=== PATIENT | female | born 1990 | race Two or more races ===

== ENCOUNTER 2016-07-03 13:13 | Emergency (ER) | payer MEDICAID ==
[~2016-07-03] VITALS: Ht 167.6 cm; Wt 87.1 kg
[~2016-07-03 13:13] MED LIST: ACETAMINOPHEN-1 EAC1 PO; ACETAMINOPHEN500 M3 ORAL; ALBUTEROL SULF8.5 GM INH; ALBUTEROL2.5 MG/3 M HHN; BENADRYL25 M3 PO; BENTYL10 MG ORAL; CYCLOBENZAPRINE10 MG ORAL; FIORICET1 EA ORAL; IBUPROFEN600 MG ORAL; IBUPROFEN600 MG PO; IBUPROFEN800 MG ORAL; IMITREX50 MG ORAL; LOMOTIL TABLET1 EACH ORAL; NAPROXEN375 MG ORAL; NITROFURANTOIN100 M2 ORAL; NKM; NORCO 5-325 TA1 EACH ORAL; NORCO 5-325 TA1 EACH PO; ONDANSETRON ODT4 MG ORAL; PROMETHAZI6.25 MG/1 ORAL; PROVERA10 MG ORAL; REGLAN5 MG ORAL; TYLENOL EXTRA500 MG ORAL; VICODIN 5-5001 EACH PO; ZOFRAN ODT4 MG ORAL; ZOFRAN4 MG ORAL
[2016-07-03] MEDS ORDERED: Acetaminophen 500mg (ES) tab ORAL ONE (14:30)
[2016-07-03] MEDS ORDERED: Morphine Sulfate 2mg/ml Inj IM ONE (14:45)
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
[2016-07-03] MEDS ORDERED: ROBAXIN-750750 MG PO (15:29)
[2016-07-03] MEDS ORDERED: ACETAMINOPHEN-1 EAC2 ORAL (15:29)
[2016-07-03 15:30] VITALS: BP 109/70
[2016-07-03 15:45] VITALS: BP 109/70
--- NOTE | 2016-07-04 10:21 | Diagnostic Imaging Report ---
Indication: Acute chest injury Technique: Continuous helical transaxial imaging of the chest was obtained from the thoracic inlet to the upper abdomen. No intravenous contrast was administered. Coronal 2-D reformats were also obtained. Total Dose length Product (DLP): [address] Dose Index Volume (CTDIvol): 23 mGy Comparison: none Findings: The lungs are clear. There is no evidence of a pulmonary contusion, effusion, hematoma. Chest wall and osseous structures visualized are grossly intact. No obvious fracture of the thoracic spine identified. No mediastinal fluid identified. Cholecystectomy clips noted. Impression: No evidence of acute injury. Negative exam. Status post cholecystectomy Dr. reynolds has communicated the preliminary results to the Emergency Department. There are no significant discrepancies. The CT scanner at [facility] is accredited by the [employer] and the scans are performed using protocols designed to limit radiation exposure to as low as reasonably achievable to attain images of sufficient resolution adequate for diagnostic evaluation.
== END 2016-07-03 15:45 | disposition home or self-care (01) ==
LOC: EMR 13:58
DX: M54.5 Low back pain (principal); S39.92XD Unspecified injury of lower back, subsequent encounter; W17.89XD Other fall from one level to another, subsequent encounter; Z90.49 Acquired absence of other specified parts of digestive tract
CPT/HCPCS: 71250; 96372; 99284; J2270

== ENCOUNTER 2016-12-27 14:30 | Emergency (ER) | payer MEDICAID ==
[~2016-12-27] VITALS: Ht 165.1 cm; Wt 89.4 kg
[~2016-12-27 14:30] MED LIST changes: +ACETAMINOPHEN-1 EAC2 ORAL; +ROBAXIN-750750 MG PO
[2016-12-27 14:51] VITALS: BP 119/75
[2016-12-27] MEDS ORDERED: ceFAZolin 2gm/50ml Premix 50 ML IVPB ONE (15:15)
[2016-12-27 15:41] LABS: BASOPHILS % (AUTO) 0.8 % (0.0-2.0); EOSINOPHILS % (AUTO) 1.3 % (0.0-3.0); MEAN CORPUSCULAR HEMOGLOBIN 29.8 PG (27.0-31.0); MEAN CORPUSCULAR HGB CONC 33.6 G/DL (32.0-36.0); MEAN CORPUSCULAR VOLUME 89 FL (80-99); MEAN PLATELET VOLUME 6.5 FL (6.5-10.1); MONOCYTES % (AUTO) 6.2 % (1.0-10.0); NEUTROPHILS % (AUTO) 62.8 % (45.0-75.0); PLATELET COUNT 396 K/UL (150-450); RED BLOOD COUNT 4.69 M/UL (4.20-5.40); RED CELL DISTRIBUTION WIDTH 11.7 % (11.6-14.8); WHITE BLOOD COUNT 11.7 K/UL (4.8-10.8)
[2016-12-27 15:55] LABS: PROTHROMBIN TIME 10.2 SEC (9.30-11.50)
[2016-12-27] MEDS ORDERED: Acetaminophen 500mg (ES) tab ORAL ONE (16:00)
[2016-12-27 16:02] LABS: ALANINE AMINOTRANSFERASE 23 U/L (3-33); ALBUMIN/GLOBULIN RATIO 1.4 (1.0-2.7); ANION GAP 11 (5-15); ASPARTATE AMINO TRANSFERASE 15 U/L (5-40); CALCIUM 9.3 mg/dL (8.6-10.2); CARBON DIOXIDE 24 mEQ/L (20-30); CHLORIDE 102 mEQ/L (98-107); CREATININE 0.6 mg/dL (0.5-0.9); GLOMERULAR FILTRATION RATE > 60 mL/min (>60); HEMOLYSIS 5; SODIUM 137 mEQ/L (135-145); TOTAL PROTEIN 7.6 g/dL (6.6-8.7)
[2016-12-27] MEDS ORDERED: OMEPRAZOLE40 M1 ORAL (16:19)
[2016-12-27] MEDS ORDERED: JANUVIA25 MG ORAL (16:19)
[2016-12-27] MEDS ORDERED: AMLODIPINE BESYL5 MG ORAL (16:19)
[2016-12-27] MEDS ORDERED: ASPIR 8181 MG ORAL (16:19)
[2016-12-27] MEDS ORDERED: LISINOPRIL20 MG ORAL (16:19)
[2016-12-27] MEDS ORDERED: METFORMIN HCL500 M1 ORAL (16:19)
[2016-12-27] MEDS ORDERED: GLIPIZIDE5 MG ORAL (16:19)
[2016-12-27] MEDS ORDERED: ACTOS30 MG ORAL (16:19)
[2016-12-27 17:00] VITALS: BP 121/65
--- NOTE | 2016-12-27 17:02 | Emergency Room Report ---
History of Present Illness General Chief Complaint: Skin Rash/Abscess Source: Patient Present Illness HPI Patient states that she's noticed a rash on her left inferior breast for about a month and a half. She states that the rash is painful. She states at times it was itchy. She denies any other symptoms. She denies fever or chills. She denies nausea or vomiting. She denies nipple discharge. She denies a mass. She has no other complaints. Allergies: Coded Allergies: KETOROLAC (Verified Allergy, Severe, 02/24/16) Patient History Past Medical History: none Past Surgical History: inocencio, other - Tubal ligation Social History: Denies: alcohol use, drug use, smoking Reviewed Nursing Documentation: PMH: Agreed, PSxH: Agreed Nursing Documentation-PMH Hx Gastrointestinal Problems: No Hx Seizures: No - CHOLECYSTECTOMY, Tubal ligation Review of Systems All Other Systems: negative except mentioned in HPI Physical Exam Vital Signs Date Time Temp Pulse Resp B/P Pulse Ox O2 Delivery O2 Flow Rate FiO2 12/27/16 14:36 98.1 92 20 119/75 100 Room Air Sp02 EP Interpretation: reviewed, normal General Appearance: no apparent distress, alert, GCS 15, non-toxic Head: normocephalic, atraumatic Eyes: bilateral eye PERRL, bilateral eye normal inspection ENT: hearing grossly normal, normal pharynx, no angioedema, normal voice Neck: full range of motion, supple/symm/no masses Respiratory: chest non-tender, lungs clear, normal breath sounds, speaking full sentences Cardiovascular #1: regular rate, rhythm, no edema Gastrointestinal: normal bowel sounds, non tender, soft, non-distended, no guarding, no rebound Rectal: deferred Musculoskeletal: back normal, gait/station normal, normal range of motion, non- tender Neurologic: alert, oriented x3, responsive, motor strength/tone normal, sensory intact, speech normal Psychiatric: judgement/insight normal, memory normal, mood/affect normal, no suicidal/homicidal ideation Skin: warm/dry, well hydrated, other - L. breast with scaly erythematous area on the inferior and lateral breast. No mass palpated in L. breast. R. breast with similar skin findings but mild. Medical Decision Making Diagnostic Impression: Primary Impression: Contact dermatitis ER Course This patient has an area of skin changes on the bilateral breasts. Appears symmetric. The left breast has some or skin changes on the right breast. This does appear to be possibly a contact dermatitis. Another consideration although less likely could be an inflammatory breast cancer. I am less inclined to believe it is this given it is bilateral. I do not feel any mass or breast changes in the breast tissue. The patient's laboratory workup is benign. This does not appear to be a cellulitis of any sort. I will not start this patient on any antibiotics as I do not feel this is infectious in etiology. I will start the patient on topical steroids I instructed the patient to change her bra. I will phone the patient followup with her primary care physician to see a specialist in to undergo a mammogram as a precaution. Regardless, the patient is instructed to followup closely with her primary care physician. I do not feel this is an emergency medical condition. Labs Test 12/27/16 15:14 White Blood Count 11.7 K/UL (4.8-10.8) Red Blood Count 4.69 M/UL (4.20-5.40) Hemoglobin 14.0 G/DL (12.0-16.0) Hematocrit 41.6 % (37.0-47.0) Mean Corpuscular Volume 89 FL (80-99) Mean Corpuscular Hemoglobin 29.8 PG (27.0-31.0) Mean Corpuscular Hemoglobin Concent 33.6 G/DL (32.0-36.0) Red Cell Distribution Width 11.7 % (11.6-14.8) Platelet Count 396 K/UL (150-450) Mean Platelet Volume 6.5 FL (6.5-10.1) Neutrophils (%) (Auto) 62.8 % (45.0-75.0) Lymphocytes (%) (Auto) 29.0 % (20.0-45.0) Monocytes (%) (Auto) 6.2 % (1.0-10.0) Eosinophils (%) (Auto) 1.3 % (0.0-3.0) Basophils (%) (Auto) 0.8 % (0.0-2.0) Prothrombin Time 10.2 SEC (9.30-11.50) Prothromb Time International Ratio 1.0 (0.9-1.1) Activated Partial Thromboplast Time 29 SEC (23-33) Sodium Level 137 mEQ/L (135-145) Potassium Level 4.0 mEQ/L (3.4-4.9) Chloride Level 102 mEQ/L (98-107) Carbon Dioxide Level 24 mEQ/L (20-30) Anion Gap 11 (5-15) Blood Urea Nitrogen 18 mg/dL (7-23) Creatinine 0.6 mg/dL (0.5-0.9) Estimat Glomerular Filtration Rate > 60 mL/min (>60) Glucose Level 124 mg/dL (74-106) Calcium Level 9.3 mg/dL (8.6-10.2) Total Bilirubin 0.5 mg/dL (0.0-1.2) Aspartate Amino Transf (AST/SGOT) 15 U/L (5-40) Alanine Aminotransferase (ALT/SGPT) 23 U/L (3-33) Alkaline Phosphatase 45 U/L (35-104) Total Protein 7.6 g/dL (6.6-8.7) Albumin 4.5 g/dL (3.5-5.2) Globulin 3.1 g/dL Albumin/Globulin Ratio 1.4 (1.0-2.7) Last Vital Signs Date Time Temp Pulse Resp B/P Pulse Ox O2 Delivery O2 Flow Rate FiO2 12/27/16 14:51 98.1 92 20 119/75 100 Room Air Disposition: HOME, SELF-CARE Condition: Improved Referrals: NON PHYSICIAN (PCP) PEYTON IVERSON D.O. Dec 27, 2016 17:02
[2016-12-27] MEDS ORDERED: KENALOG1 APPLIC TOPIC (17:09)
[2016-12-27] MEDS ORDERED: BENADRYL25 MG ORAL (17:09)
[2016-12-27 17:13] VITALS: BP 121/65
[2016-12-27] MEDS ORDERED: DiphenhydrAMINE 50mg/ml Inj IVP ONE (17:15)
== END 2016-12-27 17:13 | disposition home or self-care (01) ==
LOC: EMR 15:08
DX: L25.9 Unspecified contact dermatitis, unspecified cause (principal); Z88.1 Allergy status to other antibiotic agents; Z90.49 Acquired absence of other specified parts of digestive tract; Z98.51 Tubal ligation status
CPT/HCPCS: 36415; 80053; 85025; 85610; 85730; 96360; 96361; 96374; 99284; J0690; J1200

== ENCOUNTER 2018-08-15 21:36 | Emergency (ER) | payer MEDICAID ==
[~2018-08-15] VITALS: Ht 165.1 cm; Wt 88.5 kg
[~2018-08-15 21:36] MED LIST changes: +ACTOS30 MG ORAL; +AMLODIPINE BESYL5 MG ORAL; +ASPIR 8181 MG ORAL; +BENADRYL25 MG ORAL; +GLIPIZIDE5 MG ORAL; +JANUVIA25 MG ORAL; +KENALOG1 APPLIC TOPIC; +LISINOPRIL20 MG ORAL; +METFORMIN HCL500 M1 ORAL; +OMEPRAZOLE40 M1 ORAL
[2018-08-15 22:00] VITALS: BP 126/60
--- NOTE | 2018-08-15 22:21 | Emergency Room Report ---
History of Present Illness General Chief Complaint: Headache Source: Patient Present Illness HPI Patient is a 28-year-old female presented after increased throbbing headache. Patient reports having acute onset of symptoms. She reports having increased nausea as well as bilateral headache. She states she had headaches in the past but not like this. She reports having some increased blurred vision. She denies being diabetic. She denies any neck stiffness. Allergies: Coded Allergies: KETOROLAC (Verified Allergy, Severe, 02/24/16) Patient History Past Medical History: see triage record Last Menstrual Period: 08/14/2018 Now: No Reviewed Nursing Documentation: PMH: Agreed; PSxH: Agreed Nursing Documentation-PMH Past Medical History: No History, Except For Hx Gastrointestinal Problems: No Hx Seizures: No - CHOLECYSTECTOMY, Tubal ligation Review of Systems All Other Systems: negative except mentioned in HPI Physical Exam Vital Signs Date Time Temp Pulse Resp B/P (MAP) Pulse Ox O2 Delivery O2 Flow Rate FiO2 08/15/18 21:52 98.4 106 16 126/60 96 Room Air Sp02 EP Interpretation: reviewed, normal General Appearance: normal inspection, well appearing, no apparent distress, alert, GCS 15 Head: atraumatic ENT: normal ENT inspection, hearing grossly normal, normal voice Neck: normal inspection, full range of motion, supple, no bony tend Respiratory: normal inspection, lungs clear, normal breath sounds, no respiratory distress, no retraction, no wheezing Cardiovascular #1: regular rate, rhythm, no edema Gastrointestinal: normal inspection, normal bowel sounds, non tender, soft, no guarding, no hernia Genitourinary: no CVA tenderness Musculoskeletal: normal inspection, back normal, normal range of motion Neurologic: normal inspection, alert, oriented x3, responsive, 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 Differential diagnoses included but was not limited to skull fracture, subarachnoid hemorrhage, meningitis, aneurysm, mass lesion, intracranial hemorrhage. Because of complexity of patient's case laboratory testing and imaging studies were ordered. Last Vital Signs Date Time Temp Pulse Resp B/P (MAP) Pulse Ox O2 Delivery O2 Flow Rate FiO2 08/15/18 21:52 98.4 106 16 126/60 96 Room Air Suhail Jc MD Aug 15, 2018 22:21
[2018-08-15] MEDS ORDERED: Metoclopramide 10mg/2ml Inj IVP ONE (22:45)
[2018-08-15] MEDS ORDERED: DiphenhydrAMINE 50mg/ml Inj IVP ONE (22:45)
[2018-08-15] MEDS ORDERED: FIORICET1 EA ORAL (23:46)
[2018-08-16] MEDS ORDERED: Dexamethasone 4mg/ml vial IVP ONE
[2018-08-16 00:53] VITALS: BP 126/60
[2018-08-16 04:10] LABS: APPEARANCE,URINE CLEAR; COLOR,URINE PALE YELLOW; PH,URINE 6.5 (4.5-8.0)
[2018-08-16 04:11] LABS: BILIRUBIN, URINE NEGATIVE (NEGATIVE); GLUCOSE, URINE (UA) NEGATIVE (NEGATIVE); KETONES,URINE NEGATIVE (NEGATIVE); LEUKOCYTE ESTERASE ,URINE NEGATIVE (NEGATIVE); NITRITE,URINE NEGATIVE (NEGATIVE); PROTEIN,URINE NEGATIVE (NEGATIVE); UROBILINOGEN,URINE NORMAL MG/DL (0.0-1.0)
--- NOTE | 2018-08-17 09:31 | Diagnostic Imaging Report ---
Indications: Headache Technique: Spiral acquisitions obtained through the brain. Angled axial and coronal 5 x 5 mm slices were reconstructed. Total dose length product 1365.53 mGycm. CTDI vol(s) 70.38 mGy. Dose reduction achieved using automated exposure control Comparison: 05/05/2014 Findings: No acute intracranial hemorrhage or edema, mass effect, nor midline shift. Normal size ventricles and extra axial CSF spaces. Normal benton-white differentiation. Orbits and sinuses are unremarkable. The mastoids are clear. The calvarium is intact Impression: Negative This agrees with the preliminary interpretation provided overnight by [facility] telerad[facility] service. The CT scanner at [facility] is accredited by the [employer] and the scans are performed using protocols designed to limit radiation exposure to as low as reasonably achievable to attain images of sufficient resolution adequate for diagnostic evaluation.
== END 2018-08-16 00:53 | disposition home or self-care (01) ==
LOC: EMR 22:16
DX: R51 Headache (principal)
CPT/HCPCS: 70450; 81003; 81025; 86710; 96374; 96375; 99284; J1100; J1200; J2765